=== PATIENT | female | born 1990 | race Caucasian/White ===

== ENCOUNTER 2022-05-23 13:00 | Emergency (ER) | payer SELFPAY ==
[~2022-05-23] VITALS: Ht 157.5 cm; Wt 51.3 kg
[2022-05-23] MEDS ORDERED: PIPERACILLIN /TAZOBACTAM 3.375 G in IV D5W 50 ML IV ONE (13:30)
[2022-05-23] MEDS ORDERED: VANCOMYCIN 1 GM in IV D5W 250 ML IV ONE (13:30)
[2022-05-23] MEDS ORDERED: IV NS 0.9% 1,000 ML BAG IV ONE (13:30)
[2022-05-23 14:01] LABS: BASOPHILS # (AUTO) 0.1 K/uL (0.0-0.2); BASOPHILS % (AUTO) 0.6 % (0.0-2.0); EOSINOPHILS % (AUTO) 0.8 % (0.0-6.0); HEMATOCRIT 37 % (33-45); LYMPHOCYTES # (AUTO) 3.2 K/uL (0.8-4.8); LYMPHOCYTES % (AUTO) 28.7 % (20.0-44.0); MEAN CORPUSCULAR HGB CONC 32 g/dl (31.0-36.0); MEAN CORPUSCULAR VOLUME 91 fL (82-100); MONOCYTES # (AUTO) 0.7 K/uL (0.1-1.30); MONOCYTES % (AUTO) 6.2 % (2.0-12.0); NEUTROPHILS % (AUTO) 63.7 % (43.0-81.0); PLATELET COUNT (AUTO) 539 K/uL (150-450); RED BLOOD CELL COUNT(AUTO) 4.08 MIL/uL (4.0-5.2)
[2022-05-23 14:43] LABS: ALBUMIN 3.1 g/dL (3.4-5.0); BILIRUBIN,DIRECT 0.1 mg/dL (0.0-0.2); BILIRUBIN,TOTAL 0.3 mg/dL (0.2-1.0); CALCIUM, SERUM 9.3 mg/dL (8.5-10.1); CREATININE 0.6 mg/dL (0.6-1.3); POTASSIUM 3.6 mmol/L (3.5-5.1); TOTAL PROTEIN, SERUM 8.2 g/dL (6.4-8.2)
--- NOTE | 2022-05-23 15:26 | NUR ---
CALLED [facility] CLOSED FOR ER TO ER TRANSFER
--- NOTE | 2022-05-23 15:41 | NUR ---
CALLED [facility] FOR TRANSFER TO HIGHER LEVEL OF CARE FOR HAND SURGEON. #[phone]. FAXING CLINICALS TO [phone]. WAITING FOR RESPONSE.
[2022-05-23 15:57] VITALS: BP 110/66
[2022-05-23] MEDS ORDERED: AMOX-430 PO (15:58)
--- NOTE | 2022-05-23 16:28 | NUR ---
Patient does not wish to proceed with medical care recommended by Dr. Gonzales. Patient given information related to possible complications, up to and including , which could occur as a result of leaving the hospital at this time. Patient verbalizes understanding of risks involved due to leaving against medical advice. Patient has signed AMA form.
== END 2022-05-23 16:28 | disposition left against medical advice (07) ==
LOC: ER 13:04
DX: I96 Gangrene, not elsewhere classified (principal); M65.841 Other synovitis and tenosynovitis, right hand; L98.499 Non-pressure chronic ulcer of skin of other sites with unspecified severity; Z53.29 Procedure and treatment not carried out because of patient's decision for other reasons; I49.8 Other specified cardiac arrhythmias
CPT/HCPCS: 99291; 96365; 96367; 93005; 73130; 85025; 80048; 87040 ×2; 83605; 80076; 36415; 85730; J3370; J2543; J7060